=== PATIENT | female | born 2000 | race Caucasian/White ===

== ENCOUNTER 2023-11-15 16:49 | Emergency (ER) | payer OTHER, SELFPAY ==
[2023-11-15 17:02] VITALS: BP 141/72; PULSE 89; RESP 18; TEMP 38; O2SAT 98; BMI 47.8
--- NOTE | 2023-11-15 17:23 | PC.NURSE ---
Patient answered yes to multiple social determinants of health questions but asked not to speak to a licensed clinical social worker about them.
--- NOTE | 2023-11-15 18:18 | ED_ITS ---
HPI - Skin/Abscess/Foreign Bdy General Chief complaint: Skin/Abscess/Foreign Body Stated complaint: auto imm dis flare up Time Seen by Provider: 11/15/23 17:57 Source: patient Mode of arrival: Ambulatory Limitations: no limitations History of Present Illness HPI narrative: 21-year-old female presents for throat swelling, fever, reported rash over forearms. 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 For the last several days she was had a fever with sore throat and swollen tonsils. She states that a red rash seems to be spreading over her forearms and so she was concerned that her Henoch-Schoenlein had come back. Related Data Previous Rx's Medication Instructions Recorded cephalexin 500 mg capsule 500 mg PO Q12H #20 caps 11/15/23 ondansetron 4 mg disintegrating 4 mg PO Q8H PRN nausea and 11/15/23 tablet vomiting #30 tabs Allergies Allergy/AdvReac Type Severity Reaction Status Date / Time latex Allergy Rash Verified 11/15/23 17:17 Penicillins Allergy Hives Verified 11/15/23 17:17 prochlorperazine AdvReac Anxiety Verified 11/15/23 17:17 [From Compazine] Patient History Social History Smoking Status: Current every day smoker Smoking Status: Current every day smoker tobacco type: vaping alcohol intake frequency: holidays/special occasions only Substance Use Type: marijuana Exam Initial Vital Signs Initial Vital Signs: Vital Signs Temperature 100.4 F H 11/15/23 17:02 Pulse Rate 89 11/15/23 17:02 Respiratory Rate 18 11/15/23 17:02 Blood Pressure 141/72 H 11/15/23 17:02 Pulse Oximetry 98 11/15/23 17:02 Oxygen Delivery Method Room Air 11/15/23 17:02 Const: Awake, alert, no acute distress, nontoxic appearing HEENT: Bilateral tonsillar erythema with white exudates, uvula midline Cardiac: regular rate, regular rhythm RESP: unlabored, clear bilaterally, no wheezing Skin: Warm, Dry, intact, no rashes Neuro: AO x3, CN II-XII grossly intact, moves all extremities Course Orders Ordered: ED Orders 11/15/23 18:20 Strep Grp A by PCR Rapid Stat 11/15/23 18:26 Respiratory Panel (Film Array) Stat 11/15/23 18:45 UA Complete [Urinalysis and Microscopic] Stat Urine Culture Stat 11/15/23 18:50 CBC Auto Diff [Complete Blood Count AUTO DIFF] Stat CMP [Comprehensive Metabolic Panel] Stat Lipase Stat Monotest Stat Discontinued Medications Acetaminophen (Acetaminophen 325 Mg Tablet) 975 mg PO NOW ONE Stop: 11/15/23 18:15 Last Admin: 11/15/23 18:40 Dose: 975 mg Documented By: GC Cephalexin HCl (Cephalexin 250 Mg Capsule) 500 mg PO NOW ONE Stop: 11/15/23 20:11 Last Admin: 11/15/23 20:28 Dose: 500 mg Documented By: RLS Dexamethasone (Dexamethasone 10 Mg/Ml Vial) 10 mg IV NOW ONE Stop: 11/15/23 19:44 Last Admin: 11/15/23 19:54 Dose: 10 mg Documented By: MPO Ketorolac Tromethamine (Ketorolac 30 Mg/Ml Vial) 15 mg IV NOW ONE Stop: 11/15/23 19:44 Last Admin: 11/15/23 19:54 Dose: 15 mg Documented By: MPO Vital Signs Vital signs: Vital Signs - 8 hr 11/15/23 18:58 11/15/23 18:59 11/15/23 18:59 Pulse Rate 82 82 Blood Pressure 110/64 Pulse Oximetry 98 98 11/15/23 19:00 11/15/23 19:00 11/15/23 19:30 Pulse Rate 78 Blood Pressure 114/65 119/56 L Pulse Oximetry 99 11/15/23 19:30 11/15/23 20:00 11/15/23 20:00 Pulse Rate 82 74 Blood Pressure 118/65 Pulse Oximetry 98 98 MDM - Skin/Abscess/Foreign Bdy Differential Diagnosis Differential diagnosis: Likely abscess of skin or subcutaneous tissue, viral exanthem and dermatophytosis Lab Data 11/15/23 18:50 11/15/23 18:50 Labs: Lab Results 11/15/23 11/15/23 11/15/23 Range/Units 18:20 18:26 18:45 WBC (4.5-11.0) X10^3/uL RBC (4.0-5.2) X10^6/uL Hgb (12.0-16.0) g/dL Hct (36-46) % MCV (80-100) fL MCH (26-34) PG MCHC (30-36) % RDW (11.6-14.8) % Plt Count (150-400) X10^3/uL Neut % (Auto) (50-75) % Lymph % (Auto) (25-40) % Cecil % (Auto) (3-14) % Eos % (Auto) (2-4) % Baso % (Auto) (0-2) % Neut # (Auto) (6097-1133) /uL Lymph # (Auto) (9920-9794) /uL Cecil # (Auto) (0-900) /uL Eos # (Auto) (0-450) /uL Baso # (Auto) (0-100) /uL Sodium (137-145) mmol/L Potassium (3.4-5.1) mmol/L Chloride (98-107) mmol/L Carbon Dioxide (22-32) mmol/L BUN (7-17) mg/dL Creatinine (0.52-1.04) mg/dL Estimated GFR (>60) mL/min BUN/Creatinine Ratio (6-22) Glucose (70-100) mg/dL Calcium (8.4-10.2) mg/dL Total Bilirubin (0.2-1.3) mg/dL AST (14-36) IU/L ALT (<35) IU/L Alkaline Phosphatase (38-126) U/L Total Protein (6.3-8.2) g/dL Albumin (3.5-5.0) g/dL Globulin (1.7-4.1) g/dL Albumin/Globulin Ratio (1.0-2.8) Lipase (23-300) U/L Urine Color Yellow Urine Appearance Clear Urine pH 6.5 (4.5-8.0) Ur Specific [place] 1.010 (1.000-1.035) Urine Protein Negative (Negative) Urine Glucose (UA) Negative (Negative) g/dL Urine Ketones Negative (NEGATIVE) Urine Occult Blood Trace-intact (Negative) Urine Nitrate Negative (Negative) Urine Bilirubin Negative (NEGATIVE) Urine Urobilinogen 0.2 (0.2) E.U./dL Ur Leukocyte Esterase Trace H (NEGATIVE) Urine RBC None seen (0-5/HPF) Urine WBC 0-1/hpf (0-5/HPF) Ur Squamous Epith Cells 5-10 /hpf H (0-5/HPF) Urine Bacteria Moderate (10-30) H (None) Ur Culture Indicated? Specimen cultured Vol Urine Centrifuged 10ml (spun) Chlamy pneumoniae PCR Not detected (Not Detect) Adenovirus (PCR) Not detected (Not Detect) B.parapertussis DNA PCR Not detected (Not Detecte) Coronavirus OC43 (PCR) Not detected (Not Detect) Coronavirus HKU1 (PCR) Not detected (Not Detect) Coronavirus 229E (PCR) Not detected (Not Detect) SARS-CoV-2 (PCR) Not detected (Not Detecte) Coronavirus NL63 (PCR) Not detected (Not Detect) Monoscreen (Negative) Human Metapneumovir PCR Not detected (Not Detect) Influenza Type A (PCR) Not detected (Not Detect) Influenza Type B (PCR) Not detected (Not Detect) M. pneumoniae (PCR) Not detected (Not Detect) Parainfluenza 1 (PCR) Not detected (Not Detect) Parainfluenza 2 (PCR) Not detected (Not Detect) Parainfluenza 3 (PCR) Not detected (Not Detect) Parainfluenza 4 (PCR) Not detected (Not Detect) RSV (PCR) Not detected (Not Detect) Entero/Rhino (PCR) Not detected (Not Detect) Group A Strep (PCR) Negative (Negative) 11/15/23 Range/Units 18:50 WBC 9.3 (4.5-11.0) X10^3/uL RBC 4.51 (4.0-5.2) X10^6/uL Hgb 12.0 (12.0-16.0) g/dL Hct 36.5 (36-46) % MCV 80.9 (80-100) fL MCH 26.6 (26-34) PG MCHC 32.9 (30-36) % RDW 14.7 (11.6-14.8) % Plt Count 311 (150-400) X10^3/uL Neut % (Auto) 72.9 (50-75) % Lymph % (Auto) 14.1 L (25-40) % Cecil % (Auto) 10.7 (3-14) % Eos % (Auto) 1.5 L (2-4) % Baso % (Auto) 0.8 (0-2) % Neut # (Auto) 6800 (9384-9426) /uL Lymph # (Auto) 1300 (8389-8294) /uL Cecil # (Auto) 1000 H (0-900) /uL Eos # (Auto) 100 (0-450) /uL Baso # (Auto) 100 (0-100) /uL Sodium 136 L (137-145) mmol/L Potassium 4.4 (3.4-5.1) mmol/L Chloride 104 (98-107) mmol/L Carbon Dioxide 26 (22-32) mmol/L BUN 10 (7-17) mg/dL Creatinine 0.72 (0.52-1.04) mg/dL Estimated GFR > 60 (>60) mL/min BUN/Creatinine Ratio 13.9 (6-22) Glucose 92 (70-100) mg/dL Calcium 8.8 (8.4-10.2) mg/dL Total Bilirubin 1.0 (0.2-1.3) mg/dL AST 23 (14-36) IU/L ALT 17 (<35) IU/L Alkaline Phosphatase 89 (38-126) U/L Total Protein 8.0 (6.3-8.2) g/dL Albumin 4.1 (3.5-5.0) g/dL Globulin 3.9 (1.7-4.1) g/dL Albumin/Globulin Ratio 1.1 (1.0-2.8) Lipase 37 (23-300) U/L Urine Color Urine Appearance Urine pH (4.5-8.0) Ur Specific [place] (1.000-1.035) Urine Protein (Negative) Urine Glucose (UA) (Negative) g/dL Urine Ketones (NEGATIVE) Urine Occult Blood (Negative) Urine Nitrate (Negative) Urine Bilirubin (NEGATIVE) Urine Urobilinogen (0.2) E.U./dL Ur Leukocyte Esterase (NEGATIVE) Urine RBC (0-5/HPF) Urine WBC (0-5/HPF) Ur Squamous Epith Cells (0-5/HPF) Urine Bacteria (None) Ur Culture Indicated? Vol Urine Centrifuged Chlamy pneumoniae PCR (Not Detect) Adenovirus (PCR) (Not Detect) B.parapertussis DNA PCR (Not Detecte) Coronavirus OC43 (PCR) (Not Detect) Coronavirus HKU1 (PCR) (Not Detect) Coronavirus 229E (PCR) (Not Detect) SARS-CoV-2 (PCR) (Not Detecte) Coronavirus NL63 (PCR) (Not Detect) Monoscreen Negative (Negative) Human Metapneumovir PCR (Not Detect) Influenza Type A (PCR) (Not Detect) Influenza Type B (PCR) (Not Detect) M. pneumoniae (PCR) (Not Detect) Parainfluenza 1 (PCR) (Not Detect) Parainfluenza 2 (PCR) (Not Detect) Parainfluenza 3 (PCR) (Not Detect) Parainfluenza 4 (PCR) (Not Detect) RSV (PCR) (Not Detect) Entero/Rhino (PCR) (Not Detect) Group A Strep (PCR) (Negative) MDM Narrative Medical decision making narrative: Well-appearing patient with the above symptoms. Complaining of a rash on her forearms, however I do not appreciate an obvious rash on my exam. Tonsils do appear to be swollen and have exudates present. Since patient was history of HSP and IgA nephropathy laboratory work was ordered. Laboratory work shows no acute findings. Platelets normal, kidney function normal. Patient given Toradol and Decadron for pain, fever, sore throat with improvement in symptoms. Strep, respiratory swab, Monospot negative, however since patient does have fever, no cough, exudates present, and mild tender anterior adenopathy we will treat as strep throat empirically with antibiotics. Patient reports allergy to penicillins and so Keflex sent to pharmacy of choice. Note for work provided Discharge Plan Departure Patient Disposition: Home Clinical Impression: Pharyngitis Qualifiers: Pharyngitis/tonsillitis etiology: unspecified etiology Qualified Code(s): J02.9 - Acute pharyngitis, unspecified Instructions: DI for Pharyngitis/Tonsillopharyngitis -- Adult Activity Restrictions/Additional Instructions: Take Tylenol and ibuprofen as needed for pain. Prescriptions: New ondansetron 4 mg tablet,disintegrating 4 mg PO Q8H PRN (Reason: nausea and vomiting) Qty: 30 0RF cephalexin 500 mg capsule 500 mg PO Q12H Qty: 20 0RF Stand Alone Forms: Patient Portal/API, Work Release Note
[2023-11-15] MEDS: ACETAMINOPHEN 325 MG TABLET 975 MG PO (18:40)
[2023-11-15 18:41] LABS: Strep Grp A by PCR Rapid Negative (Negative)
[2023-11-15 18:50] LABS: Appearance Urine UA CLEAR; Bilirubin Urine UA NEGATIVE (NEGATIVE); Color Urine UA YELLOW; Glucose Urine UA NEGATIVE (Negative); Ketones Urine UA NEGATIVE (NEGATIVE); Leukocyte Esterase Urine UA TRACE (NEGATIVE); Nitrite Urine UA NEGATIVE (Negative); Occult Blood Urine UA TRACE-INTACT (Negative); Protein Urine UA NEGATIVE (Negative); Urobilinogen Urine UA 0.2 E.U./dL (0.2)
[2023-11-15 18:52] LABS: pH Urine UA 6.5 (4.5-8.0)
[2023-11-15 18:53] LABS: Urine Volume 10mL (spun)
[2023-11-15 18:58] VITALS: PULSE 82; O2SAT 98
[2023-11-15 18:58] LABS: Bacteria Urine Moderate (10-30); RBC Urine None Seen (0-5/HPF); WBC Urine 0-1/HPF (0-5/HPF)
[2023-11-15 18:59] VITALS: BP 110/64; PULSE 82; O2SAT 98
[2023-11-15 18:59] LABS: Culture Indicated Urine Specimen Cultured; Squamous Epithelial Cell Urine 5-10 /HPF (0-5/HPF)
[2023-11-15 19:00] VITALS: BP 114/65; PULSE 78; O2SAT 99
[2023-11-15 19:04] LABS: Add Manual Diff / Slide Review NO; Basophils Absolute Auto 100 /uL (0-100); Basophils Percent Auto 0.8 % (0-2); Eosinophils Absolute Auto 100 /uL (0-450); Eosinophils Percent Auto 1.5 % (2-4); Hematocrit 36.5 % (36-46); Lymphocytes Absolute Auto 1300 /uL (1100-4500); Lymphocytes Percent Auto 14.1 % (25-40); Mean Corpuscular HGB Conc 32.9 % (30-36); Mean Corpuscular Hemoglobin 26.6 PG (26-34); Mean Corpuscular Volume 80.9 fL (80-100); Monocytes Absolute Auto 1000 /uL (0-900); Monocytes Percent Auto 10.7 % (3-14); Neutrophils Absolute Auto 6800 /uL (1500-7000); Neutrophils Percent Auto 72.9 % (50-75); Platelet Count 311 X10^3/uL (150-400); Red Blood Cell Count 4.51 X10^6/uL (4.0-5.2); Red Cell Distribution Width 14.7 % (11.6-14.8); White Blood Cell Count 9.3 X10^3/uL (4.5-11.0)
[2023-11-15 19:15] LABS: Alanine Aminotransferase 17 IU/L (<35); Albumin 4.1 g/dL (3.5-5.0); Albumin Globulin Ratio 1.1 (1.0-2.8); Alkaline Phosphatase 89 U/L (38-126); Aspartate Aminotransferase 23 IU/L (14-36); BUN Creatinine Ratio 13.9 (6-22); Blood Urea Nitrogen 10 mg/dL (7-17); Calcium 8.8 mg/dL (8.4-10.2); Carbon Dioxide 26 mmol/L (22-32); Chloride 104 mmol/L (98-107); Estimated Glomerular Filt Rate > 60 mL/min (>60); Globulin 3.9 g/dL (1.7-4.1); Glucose 92 mg/dL (70-100); HEMOLYSIS < 15 (0-50); Lipase 37 U/L (23-300); Potassium 4.4 mmol/L (3.4-5.1); Sodium 136 mmol/L (137-145)
[2023-11-15 19:23] LABS: Adenovirus Not Detected (Not Detect); B. parapertussis Not Detected (Not Detecte); Bordetella pertussis Not Detected (Not Detect); Chlamydophila pneumoniae Not Detected (Not Detect); Coronavirus 229E Not Detected (Not Detect); Coronavirus HKU1 Not Detected (Not Detect); Coronavirus NL 63 Not Detected (Not Detect); Coronavirus OC43 Not Detected (Not Detect); Human Metapneumovirus Not Detected (Not Detect); Human Rhinovirus/Enterovirus Not Detected (Not Detect); Influenza A Not Detected (Not Detect); Influenza B Not Detected (Not Detect); Mycoplasma pneumoniae Not Detected (Not Detect); Parainfluenza Virus 1 Not Detected (Not Detect); Parainfluenza Virus 2 Not Detected (Not Detect); Parainfluenza Virus 3 Not Detected (Not Detect); Parainfluenza Virus 4 Not Detected (Not Detect); Respiratory Syncytial Virus Not Detected (Not Detect); SARS- CoV-2 Not Detected (Not Detecte)
[2023-11-15 19:30] VITALS: BP 119/56; PULSE 82; O2SAT 98
[2023-11-15] MEDS: KETOROLAC 30 MG/ML VIAL 15 MG IV (19:54)
[2023-11-15] MEDS: DEXAMETHASONE 10 MG/ML VIAL IV (19:54)
[2023-11-15 19:59] LABS: Monotest Negative (Negative)
[2023-11-15 20:00] VITALS: BP 118/65; PULSE 74; O2SAT 98
[2023-11-15] MEDS: cephALEXin 250 MG CAPSULE 500 MG PO (20:28)
== END 2023-11-15 20:34 | disposition home or self-care (01) ==
PROVIDERS: Emergency Provider Emergency Medicine
DX: J02.9 Acute pharyngitis, unspecified (principal); Z11.52 Encounter for screening for COVID-19
CPT/HCPCS: 36415; 80053; 81001; 83690; 85025; 86318; 87086; 87633; 87651; 96374; 96375; 99284; J1100; J1885

== ENCOUNTER → 2024-09-13 13:08 | Outpatient (CLI) | payer OTHER, SELFPAY ==
--- NOTE | 2024-09-13 13:12 | DI.US.S_ITS ---
PROCEDURE: US PELVIC COMPLETE INDICATIONS: LEFT OVARIAN PAIN. HISTORY OF PCOS. TECHNIQUE: Real-time scanning was performed of the pelvic organs, with image documentation. Additional endovaginal scanning was necessary due to incomplete visualization of the adnexal and endometrial structures by transabdominal scanning. COMPARISON: None. FINDINGS: Uterus: Uterus is anteverted and normal in size at 8.0 x 4.6 x 3.2 cm. The myometrium is homogeneous. The endometrium measures 4.3 mm combined thickness. Intrauterine device appears in appropriate position. Ovaries: The right ovary measures 3.4 x 3.2 x 2.7 cm, with a calculated ovarian volume of 16.7 cc. Right ovarian dominant follicle versus simple cyst measuring 2.8 cm. The left ovary measures 1.9 x 1.9 x 1.5 cm, with a calculated ovarian volume of 2.8 cc. The ovaries have a normal sonographic appearance. Less than 12 follicles can be seen in each ovary. No adnexal masses are seen. Other: No pathologic free abdominal or pelvic fluid. IMPRESSION: Normal appearance of the uterus and ovaries. Intrauterine device appears in appropriate position. Less than 12 follicles are seen per ovary. We strive to produce accurate, complete, and clear reports of imaging services. To assist us in improving patient care, this report was composed using standard report templates and voice recognition software. Therefore, it may contain abnormal punctuation, insertions and/or omissions. Occasional wrong-word or sound-alike substitutions may occur. Though we review the report and make efforts to correct it, we do recommend that the report be read carefully in proper context to recognize any text inaccuracies. Dictated by: Gennaro Downey M.D. on 09/13/2024 at 16:59 Approved by: Gennaro Downey M.D. on 09/13/2024 at 17:01
== END ==
LOC: US 13:12
PROVIDERS: PCP Registered Nurse; Referring Provider Obstetrics & Gynecology; Visit Provider Obstetrics & Gynecology
DX: R10.2 Pelvic and perineal pain (principal); Z87.42 Personal history of other diseases of the female genital tract; Z97.5 Presence of (intrauterine) contraceptive device
CPT/HCPCS: 76830; 76856

== ENCOUNTER 2024-09-26 11:50 | Day surgery (SDC) | payer OTHER, SELFPAY ==
[2024-09-22 12:30] VITALS: BMI 48.5
[2024-09-26] VITALS (8 sets, daily range): BP systolic 106–127; BP diastolic 47–84; PULSE 73–98; RESP 15–20; TEMP 36.2–36.7; O2SAT 96–100; BMI 48.6
--- NOTE | 2024-09-26 12:44 | PM.PREOP ---
Pre-operative Note Interval Note History & Physical reviewed/Exam performed by Physician: Yes Changes to H&P: No ASA Class (for procedural sedation): II
[2024-09-26] MEDS: SCOPOLAMINE 1 PATCH TOP (12:57)
[2024-09-26] MEDS: LACTATED RINGERS 1,000 ML 42 ML IV ×2 (12:57→14:23)
[2024-09-26] MEDS: ACETAMINOPHEN 325 MG TABLET 975 MG PO (12:58)
--- NOTE | 2024-09-26 14:00 | SUR.OPER ---
Lithotomy on padded OR bed. Welton Pad Positioner under torso. Head on pillow, arms padded and tucked at sides. Purple safety strap to upper body. Legs secured in padded yellow fins stirrups.
[2024-09-26] MEDS: BUPIVACAINE 0.25% W/ EPI 30 ML VIAL INJ (14:18)
--- NOTE | 2024-09-26 14:57 | P.OP_ITS ---
Operative Date/Time/Diagnoses Date of procedure: 09/26/24 Time of procedure: 14:57 Pre-op diagnosis: symptomatic ROV cyst, desired removal of IUD/placement of nexplanon Post-op diagnosis: same Procedure & Clinicians Procedure: diagnostic laparoscopy, R ovarian cystectomy, removal of IUD, placement of LUE nexplanon Same procedure(s) as scheduled: Yes Indications: symptomatic ROV cyst, desired change in contraception Surgeon: Michela Tong Click Yes if Unassisted: Yes Anesthesia Type: General Operative Notes Findings: Enlarged R ovary consistent with prior imaging, cyst contents drained of simple fluid IUD removed, visualized and noted to be intact Scant L pelvic sidewall adhesion, no significant stigamata of endometriosis identified, normal appearing appendix and liver edge Specimen(s): none sent Applied: implant(s) (nexplanon SN [id number] Exp 2026-09 Lot [id number]) Estimated Blood Loss (mL): 5 Blood products transfused: none Procedure in detail: The patient was taken to the operating room, placed on the operating table in the supine position and intubated with ETT.? The patient was then placed in the lithotomy position with her legs in George stirrups.? The patient was then examined under anesthesia with the above findings, then prepped and draped in a sterile fashion.? A sparks catheter was placed.? Time out was performed. A 5mm incision was made infraumbilically and abdominal entry was achieved under direct visualization using the 5mm VisaPort trocar.? Abdomen was insufflated to 15mmHg.? Two lateral 5-mm ports were placed in a similar manner under direct visualization.? Abdominal survey performed with findings as noted above. Using the monopolar endoshears the large R cyst was sharply incised. The suction solar energy advisor and was immediately placed into the cyst wall defect and copious serous fluid was evacuated. The site of incision was noted to hemostatic without indication for laparoscopic repair. L ovary visualized and normal in appearance. Scant L pelvic side wall adhesion noted and taken down sharply, wound bed noted to be hemostatic. The abdomen was suction irrigated of all remaining fluid. Laparoscopic trocars were removed under direct visualization and abdominal insufflation was released. The skin of all incisions was closed using 4-0 monocryl followed by application of dermabond. Attention was then turned to vaginal portion of the case. A sterile speculum was placed in the vagina and cervix was visualized. IUD strings noted at external os. IUD strings grasped with ring forceps and with gentle traction device easily removed, visually inspected and noted to be intact. The patient had previously indicated R hand dominance. Her left arm was extended to and then flexed to 90 degrees. Medial epicondyle palpated, area of planned insertion marked 8cm proximal thereof within the inferior aspect of the brachial groove.? Area swabbed with alcohol prep and then superficially infiltrated with 5cc 1% lidocaine for local analgesia.? Nexplanon device obtained from office supply was placed per photo stylist instructions without difficulty.? Insertional incision reapproximated with steristrips and hemostasis noted.? Compression bandage applied. The patient was awakened from anesthesia, extubated and taken to PACU without complication. All counts correct x2 Complications: none Post-operative Condition: stable Disposition: PACU Plan for aftercare: anticipate dc to home pending routine postop recovery, routine outpatient f/u in office as scheduled
[2024-09-26] MEDS: HYDROMORPHONE 1 MG INJ IV (15:03)
[2024-09-26] MEDS: OXYCODONE IR 5 MG TABLET PO ×2 (15:12→15:58)
== END 2024-09-26 16:25 | disposition home or self-care (01) ==
PROVIDERS: PCP Registered Nurse; Referring Provider Obstetrics & Gynecology; Visit Provider Obstetrics & Gynecology
PROC: (CPT 49322; principal; 2024-09-26 13:45)
DX: N83.201 Unspecified ovarian cyst, right side (principal); R10.2 Pelvic and perineal pain; Z30.432 Encounter for removal of intrauterine contraceptive device; Z30.017 Encounter for initial prescription of implantable subdermal contraceptive; N73.6 Female pelvic peritoneal adhesions (postinfective)
CPT/HCPCS: 49322; 58301; 11981; C1713; J1100; J1171; J1885; J2250; J2405; J2704; J3010; J3490

== ENCOUNTER 2024-09-28 01:19 | Emergency (ER) | payer OTHER, SELFPAY ==
[2024-09-28 01:48] VITALS: BP 123/68; PULSE 70; RESP 20; TEMP 36.6; O2SAT 97; BMI 47.8
--- NOTE | 2024-09-28 02:43 | ED.GENADULT ---
HPI - General Adult General Chief complaint: Shortness of Breath/Dyspnea Stated complaint: Rt side pain, prior surgery x2days Time Seen by Provider: 09/28/24 02:43 Source: patient Mode of arrival: Ambulatory History of Present Illness HPI narrative: 24-year-old woman who underwent diagnostic laparoscopy with right ovarian cystectomy, removal of an IUD in placement of a left upper extremity Nexplanon on September 26. She has been using her prescribed pain medications but noting more pain and she had anticipated. She laid down this evening and felt a pulling and tearing in her right side that then radiated up into her arm her shoulder and her neck. The pain is significant enough that is causing her to splint while breathing. Still complaining of neck pain. Has not yet had a bowel movement since surgery, no dysuria, no palpitations no cough Related Data Home Medications ?Medication ?Instructions ?Recorded ?Confirmed duloxetine 30 mg capsule,delayed 30 mg PO DAILY 09/22/24 09/26/24 release hydroxyzine HCl 25 mg tablet 25 mg PO Q6H 09/22/24 09/26/24 metformin 500 mg tablet,extended 500 mg PO DAILY 09/22/24 09/26/24 release 24 hr prazosin 2 mg capsule 2 mg PO BEDTIME 09/22/24 09/26/24 quetiapine 300 mg tablet 350 mg PO DAILY 09/22/24 09/26/24 Previous Rx's ?Medication ?Instructions ?Recorded ondansetron 4 mg disintegrating 4 mg PO Q8H PRN nausea and 11/15/23 tablet vomiting #30 tabs ibuprofen 800 mg tablet 800 mg PO Q8H #10 tabs 09/26/24 oxycodone 5 mg capsule 5 mg PO Q8H PRN pain #5 caps 09/26/24 oxycodone 5 mg tablet 5 mg PO Q6H PRN pain #10 tabs 09/28/24 Allergies Allergy/AdvReac Type Severity Reaction Status Date / Time latex Allergy Rash Verified 09/28/24 01:59 Penicillins Allergy Hives Verified 09/28/24 01:59 prochlorperazine (From AdvReac Anxiety Verified 09/28/24 01:59 Compazine) Review of Systems Review of Systems Narrative: Pertinent positive and negative findings as per HPI Patient History Medical History (Updated 09/28/24 @ 03:49 by Criselda Stafford MD) Deep dyspareunia in female Ovarian cyst Neuropathy with IgA monoclonal gammopathy HSP (Henoch Schonlein purpura) Prediabetes PCOS (polycystic ovarian syndrome) Social History alcohol intake: current tobacco type: vaping alcohol intake frequency: holidays/special occasions only Exam Initial Vital Signs Initial Vital Signs: Vital Signs Temperature 97.9 F 09/28/24 01:48 Pulse Rate 70 09/28/24 01:48 Respiratory Rate 20 09/28/24 01:48 Blood Pressure 123/68 09/28/24 01:48 Pulse Oximetry 97 09/28/24 01:48 Oxygen Delivery Method Room Air 09/28/24 01:48 General: Healthy appearing, appears fatigued, hurting but Able to give a complete and coherent history. Well-nourished well-developed HEENT: Moist mucous membranes, normal sclera with reactive pupils, Neck: No subcutaneous air Respiratory: Lungs are clear to auscultation, no wheezing no rales no rhonchi. Full and symmetrical air movement Cardiac: Regular rate and rhythm no murmurs no bruits Abdomen: Soft, minor bruising around trochanteric incision sites. No sign of infection. No tenderness in the right upper quadrant, mild discomfort in the right lower quadrant consistent with 48 hours postoperative cyst removal. She does not have any rebound or guarding Skin: Warm and dry, Neurologic: Grossly neurologically intact with no obvious asymmetries or abnormalities Extremities: No trauma, well perfused Psych: Cooperative, appropriate insight and affect Course Orders Ordered: ED Orders 09/28/24 02:44 XR chest 1V Stat 09/28/24 03:02 Urine Microscopic Stat 09/28/24 03:15 CBC Auto Diff [Complete Blood Count AUTO DIFF] Stat CMP [Comprehensive Metabolic Panel] Stat Discontinued Medications Hydromorphone HCl (Hydromorphone 0.5 Mg Inj) 0.5 mg IV NOW ONE Stop: 09/28/24 03:48 Last Admin: 09/28/24 04:12 Dose: 0.5 mg Documented By: DARRYL Ketorolac Tromethamine (Ketorolac 30 Mg/Ml Vial) 15 mg IV NOW ONE Stop: 09/28/24 03:37 Last Admin: 09/28/24 04:11 Dose: 15 mg Documented By: DARRYL Vital Signs Vital signs: Vital Signs - 8 hr 09/28/24 01:48 09/28/24 04:19 09/28/24 04:19 Temperature 97.9 F Pulse Rate 70 63 Respiratory Rate 20 17 Blood Pressure 123/68 130/77 Pulse Oximetry 97 99 Oxygen Delivery Method Room Air Room Air Medical Decision Making Lab Data 09/28/24 03:15 09/28/24 03:15 Labs: Lab Results 09/28/24 09/28/24 Range/Units 03:02 03:15 WBC 8.8 (4.5-11.0) X10^3/uL RBC 4.83 (4.0-5.2) X10^6/uL Hgb 12.8 (12.0-16.0) g/dL Hct 37.7 (36-46) % MCV 77.9 L (80-100) fL MCH 26.5 (26-34) PG MCHC 34.0 (30-36) % RDW 15.0 H (11.6-14.8) % Plt Count 287 (150-400) X10^3/uL Neut % (Auto) 48.0 L (50-75) % Lymph % (Auto) 42.4 H (25-40) % [place] % (Auto) 7.5 (3-14) % Eos % (Auto) 1.5 L (2-4) % Baso % (Auto) 0.6 (0-2) % Neut # (Auto) 4200 (3683-1576) /uL Lymph # (Auto) 3700 (6610-4086) /uL [place] # (Auto) 700 (0-900) /uL Eos # (Auto) 100 (0-450) /uL Baso # (Auto) 100 (0-100) /uL Sodium 140 (137-145) mmol/L Potassium 4.0 (3.4-5.1) mmol/L Chloride 107 (98-107) mmol/L Carbon Dioxide 22 (22-32) mmol/L BUN 15 (7-17) mg/dL Creatinine 0.79 (0.52-1.04) mg/dL Estimated GFR > 60 (>60) mL/min BUN/Creatinine Ratio 19.0 (6-22) Glucose 114 H (70-99) mg/dL Calcium 8.5 (8.4-10.2) mg/dL Total Bilirubin 0.9 (0.2-1.3) mg/dL AST 22 (14-36) IU/L ALT 17 (<35) IU/L Alkaline Phosphatase 89 (38-126) U/L Total Protein 7.8 (6.3-8.2) g/dL Albumin 4.5 (3.5-5.0) g/dL Globulin 3.3 (1.7-4.1) g/dL Albumin/Globulin Ratio 1.4 (1.0-2.8) Urine RBC 5-10/hpf H (0-5/HPF) Urine WBC None seen (0-5/HPF) Ur Squamous Epith Cells 1-5 /hpf (0-5/HPF) Urine Bacteria None seen (None) Ur Culture Indicated? Cult not indicated Vol Urine Centrifuged 10ml (spun) Urine Dip Bedside Urine Glucose Negative Bedside Urine Bilirubin - Negative Bedside Urine Ketone - Negative Urine Specific [place] 1.030 Bedside Urine Occult Blood +++ Bedside Urine pH 6.0 Bedside Urine Protein + 30 Bedside Urine Urobilinogen - Negative Bedside Urine Nitrite - Negative Bedside Urine Leukocytes - Negative Esterase Point of care testing: Urine Dip Bedside Urine Glucose Negative Bedside Urine Bilirubin - Negative Bedside Urine Ketone - Negative Urine Specific [place] 1.030 Bedside Urine Occult Blood +++ Bedside Urine pH 6.0 Bedside Urine Protein + 30 Bedside Urine Urobilinogen - Negative Bedside Urine Nitrite - Negative Bedside Urine Leukocytes - Negative Esterase MDM Narrative Medical decision making narrative: CC: Right-sided pain radiating up through diaphragm lungs to the shoulder and up into the neck L through the arm Complicating co-morbidities: 48 hours postop from removal of right ovarian cyst exploratory laparotomy Data collected from: patient Medical records reviewed: Off notes from surgery on the reviewed Differential considered: Postoperative pain, intra-abdominal bleeding, diaphragmatic irritation post insufflation causing shoulder pain, pulmonary embolism Exam documented above, pertinent findings include: Exam is essentially benign. Her abdomen is level of tenderness I would expect 48 hours postop with no evidence of rebound or guarding Lab Test results independently reviewed as above. Pertinent findings: CBC is unremarkable Chemistries are reassuring Imaging studies independently reviewed: Chest x-ray shows no pneumothorax, no pulmonary infiltrate, no obvious subdiaphragmatic air Treatments: IV Toradol, IV Dilaudid Discussion: 24-year-old woman 48 hours postop with right ovarian cyst removal. I suspect that she is experiencing postoperative pain and whether something pulled in early or she had some fluid leaking up around her diaphragm when she was lying flat is unclear. No evidence of obvious intra-abdominal hemorrhage, infection, surgical abdomen. Despite pain to the shoulder no abnormalities with shoulder chest or neck exam all consistent with referred diaphragmatic pain. Patient does note that the 5 mg of oxycodone that she was givento use for pain control is not proving very effective, she has been appropriately combining it with ibuprofen. I have given her prescription for 10 additional tablets we discussed considering taking 2 at a time with the ibuprofen however, pain likely is going to continue improving from this point out. Reassurance is given she is feeling much better with pain adequately controlled and she is safe for discharge Discharge Plan Departure Patient Disposition: Home Clinical Impression: Post-operative pain Instructions: DI for Postoperative Pain Activity Restrictions/Additional Instructions: Thank you for coming in today I suspect you are feeling postoperative pain rather than any significant complication of your recent surgery I am not seeing any signs of infection, internal bleeding, collapsed lung or other concerning findings. I suspect that you are having mild inflammation after your surgery that is irritating your diaphragm on the right side and this is what is causing your upper chest shoulder and arm pain. I have sent an additional 10 tablets of oxycodone to [facility] in [place]. Using 400 mg of ibuprofen (2 [id number] pills) and 1 Tylenol every 6 hours can be very helpful in controlling pain. For severe pain you can add 1 oxycodone to this combination. I would add a stool softener to this combination as you have already been more than 48 hours without a bowel movement and narcotics make you constipated Please keep your scheduled follow up postop appointments. If you find that you are getting worse or develop any new symptoms, please feel free to return to the emergency department for further evaluation. Prescriptions: New oxycodone 5 mg tablet 5 mg PO Q6H PRN (Reason: pain) Qty: 10 0RF No Action hydroxyzine HCl 25 mg tablet 25 mg PO Q6H duloxetine 30 mg capsule,delayed release(DR/EC) 30 mg PO DAILY metformin 500 mg tablet extended release 24 hr 500 mg PO DAILY Patient Comments: Currently taking once daily prazosin 2 mg capsule 2 mg PO BEDTIME quetiapine 300 mg tablet 350 mg PO DAILY ibuprofen 800 mg tablet 800 mg PO Q8H Qty: 10 0RF Rx Instructions: take with food oxycodone 5 mg capsule 5 mg PO Q8H PRN (Reason: pain) Qty: 5 0RF ondansetron 4 mg tablet,disintegrating 4 mg PO Q8H PRN (Reason: nausea and vomiting) Qty: 30 0RF Referrals: Filomena Fleming ARNP [Primary Care Provider, Family Practice] Stand Alone Forms: Patient Portal/API
--- NOTE | 2024-09-28 02:44 | DI.RAD.S_ITS ---
PROCEDURE: XR CHEST 1V INDICATIONS: cough, fever, post op laproscopy TECHNIQUE: One view of the chest was acquired. COMPARISON: None. FINDINGS: Surgical changes and devices: None. Lungs and pleura: Lungs are clear. No pleural effusions or pneumothorax. Mediastinum: Mediastinal contours appear normal. Heart size is normal. Bones and chest wall: No suspicious bony lesions. Overlying soft tissues appear unremarkable. IMPRESSION: No acute cardiopulmonary abnormality is seen. There is no significant discrepancy when compared to the overnight preliminary report. Approved by: Jozef Grajeda M.D. on 09/28/2024 at 8:13
[2024-09-28 03:25] LABS: Add Manual Diff / Slide Review NO; Basophils Absolute Auto 100 /uL (0-100); Basophils Percent Auto 0.6 % (0-2); Eosinophils Absolute Auto 100 /uL (0-450); Eosinophils Percent Auto 1.5 % (2-4); Hematocrit 37.7 % (36-46); Hemoglobin 12.8 g/dL (12.0-16.0); Lymphocytes Absolute Auto 3700 /uL (1100-4500); Lymphocytes Percent Auto 42.4 % (25-40); Mean Corpuscular Hemoglobin 26.5 PG (26-34); Mean Corpuscular Volume 77.9 fL (80-100); Monocytes Absolute Auto 700 /uL (0-900); Monocytes Percent Auto 7.5 % (3-14); Neutrophils Absolute Auto 4200 /uL (1500-7000); Platelet Count 287 X10^3/uL (150-400); Red Blood Cell Count 4.83 X10^6/uL (4.0-5.2); White Blood Cell Count 8.8 X10^3/uL (4.5-11.0)
[2024-09-28 03:33] LABS: Alanine Aminotransferase 17 IU/L (<35); Albumin 4.5 g/dL (3.5-5.0); Albumin Globulin Ratio 1.4 (1.0-2.8); Alkaline Phosphatase 89 U/L (38-126); Aspartate Aminotransferase 22 IU/L (14-36); Bilirubin Total 0.9 mg/dL (0.2-1.3); Blood Urea Nitrogen 15 mg/dL (7-17); Calcium 8.5 mg/dL (8.4-10.2); Carbon Dioxide 22 mmol/L (22-32); Chloride 107 mmol/L (98-107); Estimated Glomerular Filt Rate > 60 mL/min (>60); Globulin 3.3 g/dL (1.7-4.1); Glucose 114 mg/dL (70-99); HEMOLYSIS 16 (0-50); Sodium 140 mmol/L (137-145); Total Protein 7.8 g/dL (6.3-8.2)
[2024-09-28 03:55] LABS: Bacteria Urine None Seen; Culture Indicated Urine Cult Not Indicated; RBC Urine 5-10/HPF (0-5/HPF); Squamous Epithelial Cell Urine 1-5 /HPF (0-5/HPF); Urine Volume 10mL (spun); WBC Urine None Seen (0-5/HPF)
[2024-09-28] MEDS: KETOROLAC 30 MG/ML VIAL 15 MG IV (04:11)
[2024-09-28] MEDS: HYDROMORPHONE 0.5 MG INJ IV (04:12)
[2024-09-28 04:19] VITALS: BP 130/77; PULSE 63; RESP 17; O2SAT 99
== END 2024-09-28 04:27 | disposition home or self-care (01) ==
PROVIDERS: Emergency Provider Emergency Medicine; PCP Registered Nurse
DX: G89.18 Other acute postprocedural pain (principal)
CPT/HCPCS: 36415; 71045; 80053; 81003; 81015; 85025; 96374; 96375; 99284; J1171; J1885

== ENCOUNTER 2024-10-03 12:51 | Emergency (ER) | payer OTHER, SELFPAY ==
[2024-10-03 12:54] VITALS: BP 137/85; PULSE 104; RESP 18; TEMP 36.8; O2SAT 97; BMI 46.9
--- NOTE | 2024-10-03 13:56 | DI.US.S_ITS ---
PROCEDURE: US PELVIC COMPLETE INDICATIONS: LEFT ADNEXAL PAIN TECHNIQUE: Real-time scanning was performed of the pelvic organs, with image documentation. Additional endovaginal scanning was necessary due to incomplete visualization of the adnexal and endometrial structures by transabdominal scanning. COMPARISON: [facility], , US PELVIC COMPLETE, 09/13/2024, 13:39. FINDINGS: Uterus: 7.8 x 2.9 x 3.2 cm. Endometrium measures 4 mm. Ovaries: Nonenlarged ovaries, measuring 7 cc on the right and 3 cc on the left. Color and spectral flows identified with Doppler imaging. Other: No pathologic free fluid. IMPRESSION: Nonenlarged ovaries, without current evidence of torsion. Unremarkable sonographic appearance of the uterus. Dictated by: Franc Salcedo M.D. on 10/03/2024 at 14:44 Approved by: Franc Salcedo M.D. on 10/03/2024 at 14:45
--- NOTE | 2024-10-03 14:01 | PC.NURSE ---
Patient reports vomiting several times yesterday and has been having vaginal spotting of blood since surgery last week with Dr. Tong. Margaret Lundberg notified.
--- NOTE | 2024-10-03 16:06 | DI.CT.S_ITS ---
PROCEDURE: CT ABDOMEN PELVIS W CON INDICATIONS: pain TECHNIQUE: After the administration of intravenous contrast, axial sections acquired from the lung bases to the pubic symphysis. Coronal and sagittal reformats were performed. For radiation dose reduction, the following was used: automated exposure control, adjustment of mA and/or kV according to patient size. COMPARISON: None. FINDINGS: Image quality: Diagnostic. Lower Chest: No significant findings. ABDOMEN: Liver: No solid mass. Gallbladder: No radiopaque gallstones or wall thickening. Biliary ducts: No biliary dilation. Pancreas: No ductal dilation. Spleen: Size is within normal limits. Adrenal Glands: No adrenal nodules. Kidneys and Ureters: No hydronephrosis. No solid mass. No complex renal cystic lesion which requires follow up. Stomach and Bowel: Normal colonic caliber, without significant wall thickening. The appendix is normal. Peritoneum: No abnormal intraperitoneal fluid. No free air. Ventral Wall: No significant ventral hernia. Abdominal Nodes: No retroperitoneal or mesenteric adenopathy by size criteria. Vessels: Aorta and inferior vena cava are normal in size. PELVIS: Pelvic Organs: Unremarkable. Bladder: No bladder wall thickening, accounting for underdistention. Pelvic Nodes: No enlarged lymph nodes. Miscellaneous: No inguinal hernias are seen. Bones: No aggressive osseous abnormality. IMPRESSION: No acute intra-abdominal abnormality seen. Dictated by: Joe Handy M.D. on 10/03/2024 at 18:04 Approved by: Joe Handy M.D. on 10/03/2024 at 18:07
[2024-10-03 17:04] LABS: Appearance Urine UA CLEAR; Bilirubin Urine UA NEGATIVE (NEGATIVE); Color Urine UA YELLOW; Glucose Urine UA NEGATIVE (Negative); Ketones Urine UA TRACE (NEGATIVE); Leukocyte Esterase Urine UA NEGATIVE (NEGATIVE); Nitrite Urine UA NEGATIVE (Negative); Occult Blood Urine UA TRACE-INTACT (Negative); Protein Urine UA 1+ (Negative); Specific Gravity Urine UA >=1.030 (1.000-1.035); Urobilinogen Urine UA 0.2 E.U./dL (0.2); pH Urine UA 5.5 (4.5-8.0)
[2024-10-03 17:05] LABS: Pregnancy Test Urine Negative (Negative)
[2024-10-03 17:12] LABS: RBC Urine 0-1/HPF (0-5/HPF); Urine Volume 10mL (spun); WBC Urine 1-5/HPF (0-5/HPF)
[2024-10-03 17:13] LABS: Bacteria Urine Moderate (10-30); Culture Indicated Urine Cult Not Indicated; Mucus Urine 3+ (Negative); Squamous Epithelial Cell Urine 5-10 /HPF (0-5/HPF)
[2024-10-03 17:33] LABS: Add Manual Diff / Slide Review NO; Basophils Absolute Auto 100 /uL (0-100); Basophils Percent Auto 0.6 % (0-2); Eosinophils Absolute Auto 100 /uL (0-450); Eosinophils Percent Auto 1.2 % (2-4); Hematocrit 39.2 % (36-46); Hemoglobin 13.3 g/dL (12.0-16.0); Lymphocytes Absolute Auto 2800 /uL (1100-4500); Mean Corpuscular HGB Conc 33.9 % (30-36); Mean Corpuscular Hemoglobin 26.3 PG (26-34); Mean Corpuscular Volume 77.6 fL (80-100); Monocytes Absolute Auto 600 /uL (0-900); Neutrophils Absolute Auto 4900 /uL (1500-7000); Neutrophils Percent Auto 58.2 % (50-75); Platelet Count 323 X10^3/uL (150-400); Red Blood Cell Count 5.04 X10^6/uL (4.0-5.2); White Blood Cell Count 8.4 X10^3/uL (4.5-11.0)
[2024-10-03 17:42] LABS: INR 1.1 (0.9-1.3)
[2024-10-03 17:44] LABS: PTT Partial Thromboplastin Tim 34 SECONDS (25.1-36.5)
[2024-10-03 17:45] LABS: Alanine Aminotransferase 16 IU/L (<35); Albumin 4.6 g/dL (3.5-5.0); Albumin Globulin Ratio 1.2 (1.0-2.8); Alkaline Phosphatase 98 U/L (38-126); Aspartate Aminotransferase 21 IU/L (14-36); BUN Creatinine Ratio 20.9 (6-22); Bilirubin Total 1.1 mg/dL (0.2-1.3); Blood Urea Nitrogen 14 mg/dL (7-17); Calcium 9.3 mg/dL (8.4-10.2); Carbon Dioxide 21 mmol/L (22-32); Chloride 104 mmol/L (98-107); Estimated Glomerular Filt Rate > 60 mL/min (>60); Globulin 3.8 g/dL (1.7-4.1); Glucose 97 mg/dL (70-99); HEMOLYSIS < 15 (0-50); Lipase 53 U/L (23-300); Sodium 138 mmol/L (137-145); Total Protein 8.4 g/dL (6.3-8.2)
[2024-10-03] MEDS: KETOROLAC 30 MG/ML VIAL IV (18:18)
[2024-10-03 19:26] VITALS: BP 136/84; PULSE 94; RESP 16; O2SAT 98
--- NOTE | 2024-10-04 11:27 | ED.ABDPAIN ---
HPI - Abdominal Pain <Henry Lundberg PA-C - Last Filed: 10/04/24 11:37> General Chief Complaint: Urogenital-Female Stated Complaint: obgyn sent to get checked for a cist Time Seen by Provider: 10/03/24 13:05 Source: patient Mode of arrival: Ambulatory History of Present Illness HPI narrative: 24-year-old female with past medical history ovarian cysts, PCOS presents to the ED with 3 days of left-sided abdominal pain. Patient had a right-sided ovarian cystectomy on 09/26/2024 which was a laparoscopic procedure. Patient started experiencing sudden onset left-sided abdominal/pelvic pain, which patient describes as very similar to the right-sided ovarian cyst pain. Patient states that she was quite nauseous and vomited yesterday due to the pain. No fever, chills, chest pain, shortness of breath, dysuria, lightheadedness, dizziness, syncope. Related Data Home Medications ?Medication ?Instructions ?Recorded ?Confirmed duloxetine 30 mg capsule,delayed 30 mg PO DAILY 09/22/24 09/26/24 release hydroxyzine HCl 25 mg tablet 25 mg PO Q6H 09/22/24 09/26/24 metformin 500 mg tablet,extended 500 mg PO DAILY 09/22/24 09/26/24 release 24 hr prazosin 2 mg capsule 2 mg PO BEDTIME 09/22/24 09/26/24 quetiapine 300 mg tablet 350 mg PO DAILY 09/22/24 09/26/24 Previous Rx's ?Medication ?Instructions ?Recorded ondansetron 4 mg disintegrating 4 mg PO Q8H PRN nausea and 11/15/23 tablet vomiting #30 tabs ibuprofen 800 mg tablet 800 mg PO Q8H #10 tabs 09/26/24 oxycodone 5 mg capsule 5 mg PO Q8H PRN pain #5 caps 09/26/24 oxycodone 5 mg tablet 5 mg PO Q6H PRN pain #10 tabs 09/28/24 Allergies Allergy/AdvReac Type Severity Reaction Status Date / Time latex Allergy Rash Verified 10/03/24 12:56 Penicillins Allergy Hives Verified 10/03/24 12:56 prochlorperazine (From AdvReac Anxiety Verified 10/03/24 12:56 Compazine) Review of Systems <Henry Lundberg PA-C - Last Filed: 10/04/24 11:37> Constitutional Constitutional: Denies chills, Denies fatigue, Denies fever(s), Denies frequent falls, Denies lethargy and Denies weakness Eyes Eyes: Denies change in vision, Denies eye discharge, Denies irritation and Denies loss of vision ENT Ears, Nose, Mouth, and Throat: Denies change in voice, Denies dizziness, Denies neck pain, Denies sore throat and Denies throat swelling Cardiovascular Cardiovascular: Denies chest pain, Denies irregular heart rhythm, Denies lightheadedness, Denies palpitations, Denies dyspnea, Denies dyspnea on exertion and Denies orthopnea Respiratory Respiratory: Denies cough, Denies dyspnea, Denies dyspnea on exertion and Denies wheezing Gastrointestinal Gastrointestinal: Reports abdominal pain, Denies change in bowel habits, Denies diarrhea, Reports nausea and Reports vomiting Musculoskeletal Musculoskeletal: Denies neck pain and Denies numbness Integumentary/Breasts Skin/Breast: Denies pruritus, Denies erythema, Denies rash and Denies wounds Neurologic Neurologic: Denies behavioral changes, Denies confusion, Denies dizziness, Denies frequent falls, Denies loss of vision, Denies numbness and Denies weakness Psychiatric Psychiatric: Denies anxiety, Denies behavioral changes, Denies confusion, Denies depression, Denies homicidal ideation and Denies suicidal ideation Endocrine Endocrine: Denies fatigue, Denies flushing and Denies palpitations Hematologic/Lymphatic Hematologic/Lymphatic: Denies easy bruising Allergic/Immunologic Allergic/Immunologic: Denies urticaria, Denies throat swelling and Denies wheezing Patient History <Henry Lundberg PA-C - Last Filed: 10/04/24 11:37> Medical History Deep dyspareunia in female Ovarian cyst Neuropathy with IgA monoclonal gammopathy HSP (Henoch Schonlein purpura) Prediabetes PCOS (polycystic ovarian syndrome) Social History Smoking Status: Former smoker alcohol intake: current Smoking Status: Former smoker tobacco type: vaping alcohol intake frequency: holidays/special occasions only Exam <Henry Lundberg PA-C - Last Filed: 10/04/24 11:37> Narrative Exam Narrative: Const General:?cooperative, healthy appearing and comfortable [facility] Head:?normal to inspection Ears:?hearing grossly normal bilaterally Nose:?external nose normal Face and sinus:?normal facial exam and sinuses nontender Mouth:?oral mucosae normal Throat:?posterior oropharynx normal Eyes General:?appearance normal, both eyes and all related structures Neck Neck:?normal visual inspection and no lymphadenopathy noted Resp Effort & Inspection:?normal respiratory effort Auscultation:?clear to auscultation bilaterally Cardio Rate:?regular rate Rhythm:?regular rhythm GI Abdomen is soft, nondistended. Abdomen is tender in the left upper and lower quadrants. Neuro General:?patient alert, patient awake and patient oriented x3 Initial Vital Signs Initial Vital Signs: Vital Signs Temperature 98.2 F 10/03/24 12:54 Pulse Rate 104 H 10/03/24 12:54 Respiratory Rate 18 10/03/24 12:54 Blood Pressure 137/85 10/03/24 12:54 Pulse Oximetry 97 10/03/24 12:54 Oxygen Delivery Method Room Air 10/03/24 12:54 <Juliet Rivero DO - Last Filed: 10/04/24 12:15> Initial Vital Signs Initial Vital Signs: Vital Signs Temperature 98.2 F 10/03/24 12:54 Pulse Rate 104 H 10/03/24 12:54 Respiratory Rate 18 10/03/24 12:54 Blood Pressure 137/85 10/03/24 12:54 Pulse Oximetry 97 10/03/24 12:54 Oxygen Delivery Method Room Air 10/03/24 12:54 Course <Henry Lundberg PA-C - Last Filed: 10/04/24 11:37> Orders Ordered: Discontinued Medications Ketorolac Tromethamine (Ketorolac 30 Mg/Ml Vial) 30 mg IV NOW ONE Stop: 10/03/24 17:11 Last Admin: 10/03/24 18:18 Dose: 30 mg Documented By: RB <DO Avni Coley Last Filed: 10/04/24 12:15> Orders Ordered: Discontinued Medications Ketorolac Tromethamine (Ketorolac 30 Mg/Ml Vial) 30 mg IV NOW ONE Stop: 10/03/24 17:11 Last Admin: 10/03/24 18:18 Dose: 30 mg Documented By: RB MDM - Abdominal Pain <DAVE Morley Last Filed: 10/04/24 11:37> Lab Data 10/03/24 17:20 10/03/24 17:20 Labs: Lab Results 10/03/24 10/03/24 Range/Units 16:40 17:20 WBC 8.4 (4.5-11.0) X10^3/uL RBC 5.04 (4.0-5.2) X10^6/uL Hgb 13.3 (12.0-16.0) g/dL Hct 39.2 (36-46) % MCV 77.6 L (80-100) fL MCH 26.3 (26-34) PG MCHC 33.9 (30-36) % RDW 15.0 H (11.6-14.8) % Plt Count 323 (150-400) X10^3/uL Neut % (Auto) 58.2 (50-75) % Lymph % (Auto) 33.0 (25-40) % Davison % (Auto) 7.0 (3-14) % Eos % (Auto) 1.2 L (2-4) % Baso % (Auto) 0.6 (0-2) % Neut # (Auto) 4900 (3733-2668) /uL Lymph # (Auto) 2800 (5392-5348) /uL Davison # (Auto) 600 (0-900) /uL Eos # (Auto) 100 (0-450) /uL Baso # (Auto) 100 (0-100) /uL PT 13.0 H (9.4-12.5) SECONDS INR 1.1 (0.9-1.3) APTT 34 (25.1-36.5) SECONDS Sodium 138 (137-145) mmol/L Potassium 4.0 (3.4-5.1) mmol/L Chloride 104 (98-107) mmol/L Carbon Dioxide 21 L (22-32) mmol/L BUN 14 (7-17) mg/dL Creatinine 0.67 (0.52-1.04) mg/dL Estimated GFR > 60 (>60) mL/min BUN/Creatinine Ratio 20.9 (6-22) Glucose 97 (70-99) mg/dL Calcium 9.3 (8.4-10.2) mg/dL Total Bilirubin 1.1 (0.2-1.3) mg/dL AST 21 (14-36) IU/L ALT 16 (<35) IU/L Alkaline Phosphatase 98 (38-126) U/L Total Protein 8.4 H (6.3-8.2) g/dL Albumin 4.6 (3.5-5.0) g/dL Globulin 3.8 (1.7-4.1) g/dL Albumin/Globulin Ratio 1.2 (1.0-2.8) Lipase 53 (23-300) U/L Urine Color Yellow Urine Appearance Clear Urine pH 5.5 (4.5-8.0) Ur Specific Carbon >=1.030 H (1.000-1.035) Urine Protein 1+ H (Negative) Urine Glucose (UA) Negative (Negative) g/dL Urine Ketones Trace H (NEGATIVE) Urine Occult Blood Trace-intact (Negative) Urine Nitrate Negative (Negative) Urine Bilirubin Negative (NEGATIVE) Urine Urobilinogen 0.2 (0.2) E.U./dL Ur Leukocyte Esterase Negative (NEGATIVE) Urine RBC 0-1/hpf (0-5/HPF) Urine WBC 1-5/hpf (0-5/HPF) Ur Squamous Epith Cells 5-10 /hpf H (0-5/HPF) Urine Bacteria Moderate (10-30) H (None) Urine Mucus 3+ H (Negative) Ur Culture Indicated? Cult not indicated Vol Urine Centrifuged 10ml (spun) Urine Test Negative (Negative) MDM Narrative Medical decision making narrative: 24-year-old female with past medical history ovarian cysts presents to the ED with 3 days of left-sided abdominal pain. Concern for left-sided ovarian cyst rupture versus ovarian torsion versus surgical complications versus diverticulitis versus constipation versus UTI versus other intra-abdominal pathology versus other. Will obtain labs, UA, urine hCG, pelvic ultrasound. Will consider CT abdomen pelvis. Patient given Toradol for pain. Labs unremarkable. UA without UTI. Urine is negative. Pelvic ultrasound shows nonenlarged ovaries, without current evidence of torsion. Unremarkable sonographic appearance of the uterus. CT abdomen pelvis was obtained which shows no acute intra-abdominal abnormalities. The appendix is normal. Discussed findings with patient. Patient's symptoms did improve with the Toradol. Patient did endorse that she has had some constipation since the surgery. Discussed with patient that her symptoms might be due to constipation versus pain from surgical recovery. Recommend bowel regimen with MiraLax, plenty of water and fiber. Recommend continuing Tylenol, ibuprofen for discomfort. Recommend follow-up with OBGYN as soon as possible. ED return precautions discussed with patient. Patient verbalized understanding. Medical records reviewed: Yes <Juliet [place] Rivero DO - Last Filed: 10/04/24 12:15> Lab Data Labs: Lab Results 10/03/24 10/03/24 Range/Units 16:40 17:20 WBC 8.4 (4.5-11.0) X10^3/uL RBC 5.04 (4.0-5.2) X10^6/uL Hgb 13.3 (12.0-16.0) g/dL Hct 39.2 (36-46) % MCV 77.6 L (80-100) fL MCH 26.3 (26-34) PG MCHC 33.9 (30-36) % RDW 15.0 H (11.6-14.8) % Plt Count 323 (150-400) X10^3/uL Neut % (Auto) 58.2 (50-75) % Lymph % (Auto) 33.0 (25-40) % Davison % (Auto) 7.0 (3-14) % Eos % (Auto) 1.2 L (2-4) % Baso % (Auto) 0.6 (0-2) % Neut # (Auto) 4900 (7329-6075) /uL Lymph # (Auto) 2800 (8496-0736) /uL Davison # (Auto) 600 (0-900) /uL Eos # (Auto) 100 (0-450) /uL Baso # (Auto) 100 (0-100) /uL PT 13.0 H (9.4-12.5) SECONDS INR 1.1 (0.9-1.3) APTT 34 (25.1-36.5) SECONDS Sodium 138 (137-145) mmol/L Potassium 4.0 (3.4-5.1) mmol/L Chloride 104 (98-107) mmol/L Carbon Dioxide 21 L (22-32) mmol/L BUN 14 (7-17) mg/dL Creatinine 0.67 (0.52-1.04) mg/dL Estimated GFR > 60 (>60) mL/min BUN/Creatinine Ratio 20.9 (6-22) Glucose 97 (70-99) mg/dL Calcium 9.3 (8.4-10.2) mg/dL Total Bilirubin 1.1 (0.2-1.3) mg/dL AST 21 (14-36) IU/L ALT 16 (<35) IU/L Alkaline Phosphatase 98 (38-126) U/L Total Protein 8.4 H (6.3-8.2) g/dL Albumin 4.6 (3.5-5.0) g/dL Globulin 3.8 (1.7-4.1) g/dL Albumin/Globulin Ratio 1.2 (1.0-2.8) Lipase 53 (23-300) U/L Urine Color Yellow Urine Appearance Clear Urine pH 5.5 (4.5-8.0) Ur Specific Carbon >=1.030 H (1.000-1.035) Urine Protein 1+ H (Negative) Urine Glucose (UA) Negative (Negative) g/dL Urine Ketones Trace H (NEGATIVE) Urine Occult Blood Trace-intact (Negative) Urine Nitrate Negative (Negative) Urine Bilirubin Negative (NEGATIVE) Urine Urobilinogen 0.2 (0.2) E.U./dL Ur Leukocyte Esterase Negative (NEGATIVE) Urine RBC 0-1/hpf (0-5/HPF) Urine WBC 1-5/hpf (0-5/HPF) Ur Squamous Epith Cells 5-10 /hpf H (0-5/HPF) Urine Bacteria Moderate (10-30) H (None) Urine Mucus 3+ H (Negative) Ur Culture Indicated? Cult not indicated Vol Urine Centrifuged 10ml (spun) Urine Test Negative (Negative) Discharge Plan Departure Patient Disposition: Home Clinical Impression: Abdominal pain Qualifiers: Abdominal location: generalized Qualified Code(s): R10.84 - Generalized abdominal pain Instructions: DI for Abdominal Pain-Adult Activity Restrictions/Additional Instructions: You were evaluated in the ED today for abdominal pain. Your labs, urine, CT abdomen pelvis and ultrasound were normal. It is unclear why you were experiencing this left-sided abdominal pain. It could be that you are experiencing some pain from the surgery as well as pain from constipation. You may take MiraLax nightly to keep your stools soft and easy to pass. You may also take 600-800 mg of ibuprofen every 8 hours with food for pain. Please follow-up with your yard switcher as soon as possible. Return to the ED if you have worsening symptoms. Prescriptions: No Action hydroxyzine HCl 25 mg tablet 25 mg PO Q6H duloxetine 30 mg capsule,delayed release(DR/EC) 30 mg PO DAILY metformin 500 mg tablet extended release 24 hr 500 mg PO DAILY Patient Comments: Currently taking once daily prazosin 2 mg capsule 2 mg PO BEDTIME quetiapine 300 mg tablet 350 mg PO DAILY ibuprofen 800 mg tablet 800 mg PO Q8H Qty: 10 0RF Rx Instructions: take with food oxycodone 5 mg capsule 5 mg PO Q8H PRN (Reason: pain) Qty: 5 0RF oxycodone 5 mg tablet 5 mg PO Q6H PRN (Reason: pain) Qty: 10 0RF ondansetron 4 mg tablet,disintegrating 4 mg PO Q8H PRN (Reason: nausea and vomiting) Qty: 30 0RF Referrals: Filomena Fleming ARNP [Primary Care Provider, Family Practice] Stand Alone Forms: Patient Portal/API ED Sign-out <Juliet Rivero DO - Last Filed: 10/04/24 12:15> Cosign ED Attending Cosconstanzaature Attestation: I was immediately available in the department for consultation. Supervised by Juleit Rivero DO
== END 2024-10-03 19:27 | disposition home or self-care (01) ==
PROVIDERS: Emergency Provider Student in an Organized Health Care Education/Training Program; PCP Registered Nurse
DX: R10.84 Generalized abdominal pain (principal); Z87.42 Personal history of other diseases of the female genital tract
CPT/HCPCS: 36415; 74177; 76830; 76856; 80053; 81001; 81025; 83690; 85025; 85610; 85730; 93975; 96374; 99284; J1885; Q9967

== ENCOUNTER 2024-10-24 07:40 | Day surgery (SDC) | payer OTHER, SELFPAY ==
[2024-10-20 08:23] VITALS: BMI 46.9
[2024-10-24] VITALS (11 sets, daily range): BP systolic 87–132; BP diastolic 46–86; PULSE 21–99; RESP 16–99; TEMP 36.1–37.4; O2SAT 97–99; BMI 46.0
[2024-10-24] MEDS: ACETAMINOPHEN IV 1,000 MG/100 ML VIAL 400 MG IV (08:22)
[2024-10-24] MEDS: SCOPOLAMINE 1 PATCH TOP (08:22)
[2024-10-24] MEDS: LACTATED RINGERS 1,000 ML 42 ML IV ×2 (08:23→11:10)
--- NOTE | 2024-10-24 09:23 | PM.PREOP ---
Pre-operative Note Interval Note History & Physical reviewed/Exam performed by Physician: Yes Changes to H&P: No
[2024-10-24] MEDS: CEFAZOLIN VIAL 3 GM in SODIUM CHLORIDE 0.9% 100 ML IV (10:00)
--- NOTE | 2024-10-24 10:20 | SUR.OPER ---
Supine on padded OR bed, head on pillow, arms secured on padded arm boards at <90 degrees abduction, legs uncrossed, safety belt at torso, tape over blanket over non operative lower leg, operative leg bumped with blankets. Operative hip bumped with blankets by Dr. Cerda
[2024-10-24] MEDS: BUPIVACAINE 0.25% (PF) VIAL 30 ML INJ (10:26)
--- NOTE | 2024-10-24 11:03 | SUR.OPER ---
During positioning prior to procedure start, wedge was placed under pt torso per anesthesia, arm boards padded with pillows and gel strap to maintain proper body alignment.
--- NOTE | 2024-10-24 12:16 | DI.RAD.S_ITS ---
PROCEDURE: XR ANKLE LT MIN 4V INDICATIONS: ANKLE FRACTURE TECHNIQUE: 4 views of the ankle were acquired. COMPARISON: [facility], CR, XR ANKLE LT MIN 3V, 10/18/2024, 11:17. FINDINGS: Four fluoroscopic spot images of the left ankle are submitted. Procedure is reported separately under operative report. ORIF of the distal left fibula with 2 threaded screws at the medial malleolus. Fluoroscopy data is not delineated. IMPRESSION: Intraoperative fluoroscopy. Dictated by: Shaggy Agudelo M.D. on 10/24/2024 at 12:33 Approved by: Shaggy Agudelo M.D. on 10/24/2024 at 12:35
--- NOTE | 2024-10-24 12:16 | DI.RAD.S_ITS ---
PROCEDURE: XR ANKLE LT MIN 3V INDICATIONS: ANKLE REPAIR TECHNIQUE: 3 views of the ankle were acquired. COMPARISON: [facility], CR, XR ANKLE LT MIN 3V, 10/24/2024, 11:01. FINDINGS: Bones: Overlying cast partially obscures the fine osseous and soft tissue detail. Status post fixation of medial and lateral malleolus using plate and screw construct. No evidence of hardware complication. Alignment appears anatomic. Soft tissues: No tibiotalar joint effusion. Achilles tendon appears normal. IMPRESSION: Expected postoperative appearance of bimalleolar fixation. Approved by: Brianda Mansfield M.D.,Ph.D. on 10/24/2024 at 20:21
[2024-10-24] MEDS: HYDROMORPHONE 1 MG INJ IV ×2 (12:49→13:08)
--- NOTE | 2024-10-24 12:52 | P.OP_ITS ---
Operative Date/Time/Diagnoses Date of procedure: 10/24/24 Time of procedure: 13:01 Pre-op diagnosis: Unstable left ankle fracture Post-op diagnosis: same Procedure & Clinicians Procedure: LEFT Ankle ORIF Same procedure(s) as scheduled: Yes Surgeon: Shaggy Cerda Central Service Tech: Devi Mcginnis Anesthesia Type: General Operative Notes Findings: Unstable Ankle Fracgture Closure Type: primary Specimen(s): none sent Applied: other Estimated Blood Loss (mL): 20 Blood products transfused: none Tourniquet time (min): 120 Procedure in detail: Laterality: Left Preoperative diagnosis: Unstable left ankle fracture Procedure performed: Open Reduction Internal Fixation of Ankle Fracture Postoperative diagnosis: Same Primary Surgeon: Shaggy Cerda MD Secondary Surgeon: LYNN Mcknight Physician Central Service Tech was used throughout the entirety of the case. ?This operation could not have been safely performed (without compromising the technical results or length of the procedure) without the assistance of a skilled teachers assistant. A teachers assistant was medically necessary for room set up, patient positioning, draping, retraction, visualization, reduction, fixation and closure. ?They were essential ?for the success of the case. Anesthesia: General EBL: 20 ml Tourniquet: 120 minutes @ 250 mmHg Implants: [employer]dy [employer]hew screws and plates; Indication For Surgery: The patient sustained an unstable ankle fracture which required surgery to restore stability and anatomic length, alignment, and rotation. The risks, benefits, and alternatives were discussed. Risks include pain, bleeding, infection, damage to nearby structures and cartilage, lack of symptom relief, malunion, nonunion, implant complications with need for removal, need for further surgery, DVT, PE, stroke, and . Written consent was obtained. Examination Under Anesthesia: An unstable ankle Operative Findings: Unstable ankle fracture, no further instability after ORIF of the medial malleolus and lateral malleolus Procedure in Detail: The patient was met in the pre-operative hold area. Consent was verified and operative extremity was signed. The patient then met with anesthesia and was brought back to the operating room. The patient was placed supine on the operating table. A general anesthetic was administered. The extremity was then prepped and draped in the usual sterile fashion. A timeout was performed per protocol. All were in agreement and we proceeded. A direct lateral approach to the lateral malleolus was made. Sharp dissection was carried out distally and scissor dissection proximally. The superficial peroneal nerve was sought out but not seen during the case. The fracture site was identified and 2mm of periosteum was freed to allow for an adequate assessment of fracture reduction. Hematoma and blocks to reduction were removed from the fracture site. The fracture site was irrigated. It was found that she has 3 fragments. There was the fibular shaft, and 2 fragments into the distal fibula. A reduction was performed and held with a point to point clamp and K-wire. Three 2.7mm lag screws were placed perpendicular, compressing the fracture sites nicely. A distal fibular plate was placed laterally and the position was confirmed with fluoroscopy. The plate was cheated slightly posteriorly to allow for the appropriate trajectory in the case syndesmosis fixation was needed. The plate was secured with screws proximally and distally. The reduction was maintained throughout. We then turned our attention to the medial malleolar fracture. We had to make a elongated incision due to her adipose tissue to get adequate exposure. A [id number]-rp-cysgo reduction clamp was utilized across the medial malleolus in order to hold the fracture reduction. We had good visualization anteriorly that showed a good reduction. Two K-wires were placed parallel which held the fracture fragment. We then over-reamed the near cortex and placed partially threaded cannulated screws. When we attempted to place the 2nd screw it was identified that it did not have enough room due to the location of the 1st screw. At this point we had to change trajectories so that the more anterior screw ended up directed posteriorly. This held the medial malleolus in good reduction. Again we had a good cortical read anteriorly and laterally. Final images were taken. We also stressed the syndesmosis and there was no clear space widening on the medial aspect of the tibiotalar joint. The wound was closed in a layered fashion with 0-vicryl in the deep tissues, covering the plate, 2-0 in the dermis, and running nylon in the skin. Local anesthetic was placed. A sterile dressing and splint were applied. The patient was awakened and transferred to the recovery room. Postoperative Plan: Same day surgery discharge NWB with splint for 2 weeks Follow up in 2 weeks Shaggy Cerda MD Complications: none Post-operative Condition: stable Disposition: PACU
[2024-10-24] MEDS: TRAMADOL 50 MG TABLET PO (13:22)
== END 2024-10-24 14:22 | disposition home or self-care (01) ==
PROVIDERS: PCP Registered Nurse; Referring Provider Orthopaedic Surgery; Visit Provider Orthopaedic Surgery
PROC: (CPT 27814; principal; 2024-10-24 09:45)
DX: S82.842A Displaced bimalleolar fracture of left lower leg, initial encounter for closed fracture (principal); W17.89XA Other fall from one level to another, initial encounter
CPT/HCPCS: 27814; 73610; 76000; 81025; C1713; J0131; J0690; J1100; J1171; J1885; J2250; J2405; J2704; J3010

== ENCOUNTER 2025-03-28 13:38 | Emergency (ER) | payer OTHER, SELFPAY ==
[2025-03-28 13:55] VITALS: BP 141/80; PULSE 105; RESP 16; TEMP 36.9; O2SAT 97; BMI 44.2
--- NOTE | 2025-03-28 14:02 | DI.CT.S_ITS ---
PROCEDURE: CT ABDOMEN PELVIS W CON INDICATIONS: Left flank pain TECHNIQUE: After the administration of intravenous contrast, axial sections acquired from the lung bases to the pubic symphysis. Coronal and sagittal reformats were performed. For radiation dose reduction, the following was used: automated exposure control, adjustment of mA and/or kV according to patient size. COMPARISON: [facility], CT, CT ABDOMEN PELVIS W CON, 10/03/2024, 17:26. FINDINGS: Image quality: Diagnostic. Lower Chest: No significant findings. ABDOMEN: Liver: No solid mass. Gallbladder: No radiopaque gallstones or wall thickening. Biliary ducts: No biliary dilation. Pancreas: No ductal dilation. Spleen: Size is within normal limits. Adrenal Glands: No adrenal nodules. Kidneys and Ureters: No hydronephrosis. No solid mass. No complex renal cystic lesion which requires follow up. Stomach and Bowel: Normal colonic caliber, without significant wall thickening. Peritoneum: No abnormal intraperitoneal fluid. No free air. Ventral Wall: No significant ventral hernia. Abdominal Nodes: No retroperitoneal or mesenteric adenopathy by size criteria. Vessels: Aorta and inferior vena cava are normal in size. PELVIS: Pelvic Organs: Unremarkable. Bladder: No bladder wall thickening, accounting for underdistention. Pelvic Nodes: No enlarged lymph nodes. Miscellaneous: No inguinal hernias are seen. Bones: No aggressive osseous abnormality. IMPRESSION: No acute abdominal process identified. Dictated by: Feliciano Leiva M.D. on 03/28/2025 at 15:55 Approved by: Feliciano Leiva M.D. on 03/28/2025 at 15:58
--- NOTE | 2025-03-28 14:04 | ED.BACK ---
HPI - Back Pain/Injury General Chief Complaint: Back Pain/Injury Stated Complaint: Lower left back pain,possible Cyst or Kidney stone Time Seen by Provider: 03/28/25 14:00 Source: patient and RN notes reviewed History of Present Illness HPI Narrative: 24-year-old female with past medical history IgA nephropathy, PCOS presents to the ED with 2 days of left-sided flank pain. Patient also endorses nausea. Patient describes the pain as a sharp pain in the left flank. Comes every few minutes. Rates the pain at 6/10. No fever, chills, chest pain, shortness of breath, dysuria, lightheadedness, dizziness, syncope. Patient does not get her periods, she is on Nexplanon. Patient is on Zepbound for the past 2 months and tolerating it well. Related Data Home Medications ?Medication ?Instructions ?Recorded ?Confirmed duloxetine 30 mg capsule,delayed 30 mg PO DAILY 09/22/24 03/06/25 release hydroxyzine HCl 25 mg tablet 25 mg PO Q6H 09/22/24 03/06/25 prazosin 2 mg capsule 2 mg PO BEDTIME 09/22/24 03/06/25 quetiapine 300 mg tablet 350 mg PO DAILY 09/22/24 03/06/25 tirzepatide (weight loss) 5 mg/0.5 5 mg SUBCUT QWEEK 01/23/25 03/06/25 mL subcutaneous pen injector (Zepbound) Previous Rx's ?Medication ?Instructions ?Recorded ondansetron 4 mg disintegrating 4 mg PO Q8H PRN nausea and 11/15/23 tablet vomiting #30 tabs ibuprofen 800 mg tablet 800 mg PO Q8H #10 tabs 09/26/24 acetaminophen 500 mg tablet 500 mg PO Q8H PRN pain #120 tabs 10/18/24 aspirin 81 mg tablet 81 mg PO DAILY #30 tabs 10/18/24 ondansetron 4 mg disintegrating 4 mg PO Q8H PRN nausea and 03/28/25 tablet vomiting #14 tabs Allergies Allergy/AdvReac Type Severity Reaction Status Date / Time latex Allergy Rash Verified 03/28/25 13:55 Penicillins Allergy Hives Verified 03/28/25 13:55 oxycodone AdvReac Nausea Verified 03/28/25 13:55 prochlorperazine (From AdvReac Anxiety Verified 03/28/25 13:55 Compazine) Review of Systems Constitutional Constitutional: Denies chills, Denies fatigue, Denies fever(s), Denies frequent falls, Denies lethargy and Denies weakness Eyes Eyes: Denies change in vision, Denies eye discharge, Denies irritation and Denies loss of vision ENT Ears, Nose, Mouth, and Throat: Denies change in voice, Denies dizziness, Denies neck pain, Denies sore throat and Denies throat swelling Cardiovascular Cardiovascular: Denies chest pain, Denies irregular heart rhythm, Denies lightheadedness, Denies palpitations, Denies dyspnea, Denies dyspnea on exertion and Denies orthopnea Respiratory Respiratory: Denies cough, Denies dyspnea, Denies dyspnea on exertion and Denies wheezing Gastrointestinal Gastrointestinal: Denies abdominal pain, Denies change in bowel habits, Denies diarrhea, Reports nausea and Denies vomiting Comments: L flank pain Musculoskeletal Musculoskeletal: Denies neck pain and Denies numbness Integumentary/Breasts Skin/Breast: Denies pruritus, Denies erythema, Denies rash and Denies wounds Neurologic Neurologic: Denies behavioral changes, Denies confusion, Denies dizziness, Denies frequent falls, Denies loss of vision, Denies numbness and Denies weakness Psychiatric Psychiatric: Denies anxiety, Denies behavioral changes, Denies confusion, Denies depression, Denies homicidal ideation and Denies suicidal ideation Endocrine Endocrine: Denies fatigue, Denies flushing and Denies palpitations Hematologic/Lymphatic Hematologic/Lymphatic: Denies easy bruising Allergic/Immunologic Allergic/Immunologic: Denies urticaria, Denies throat swelling and Denies wheezing Patient History Medical History Deep dyspareunia in female Ovarian cyst Neuropathy with IgA monoclonal gammopathy HSP (Henoch Schonlein purpura) Prediabetes PCOS (polycystic ovarian syndrome) Surgical History Hx of ovarian cystectomy (09/26/24) Social History household members: significant other Smoking Status: Current every day smoker alcohol intake: current Smoking Status: Current every day smoker tobacco type: vaping alcohol intake frequency: holidays/special occasions only Exam Narrative Exam Narrative: Const General:?cooperative, healthy appearing and comfortable [facility] Head:?normal to inspection Ears:?hearing grossly normal bilaterally Nose:?external nose normal Face and sinus:?normal facial exam and sinuses nontender Mouth:?oral mucosae normal Throat:?posterior oropharynx normal Eyes General:?appearance normal, both eyes and all related structures Neck Neck:?normal visual inspection and no lymphadenopathy noted Resp Effort & Inspection:?normal respiratory effort Auscultation:?clear to auscultation bilaterally Cardio Rate:?regular rate Rhythm:?regular rhythm GI Abdomen is soft, nondistended, nontender to palpation. There is left-sided CVA tenderness. Neuro General:?patient alert, patient awake and patient oriented x3 Initial Vital Signs Initial Vital Signs: Vital Signs Temperature 98.4 F 03/28/25 13:55 Pulse Rate 105 H 03/28/25 13:55 Respiratory Rate 16 03/28/25 13:55 Blood Pressure 141/80 H 03/28/25 13:55 Pulse Oximetry 97 03/28/25 13:55 Oxygen Delivery Method Room Air 03/28/25 13:55 Course Orders Ordered: ED Orders 03/28/25 14:02 CT abdomen pelvis w con Stat 03/28/25 14:06 CBC Auto Diff [Complete Blood Count AUTO DIFF] Stat CMP [Comprehensive Metabolic Panel] Stat Lactate (Lactic Acid) Stat Lipase Stat 03/28/25 14:50 Urine Microscopic Stat 03/28/25 17:16 US pelvic complete Stat Famotidine (Famotidine 20 Mg/2 Ml Vial) 40 mg IV NOW HALLE Last Admin: 03/28/25 16:32 Dose: 40 mg Documented By: RL Discontinued Medications Sodium Chloride (Normal Saline 0.9%) 1,000 mls @ 1,000 mls/hr IV BOLUS ONE Stop: 03/28/25 18:26 Last Infusion: 03/28/25 18:34 Dose: Infused Documented By: Admin: 03/28/25 17:30 Dose: 1,000 mls/hr Documented By: CHANDA Ketorolac Tromethamine (Ketorolac 30 Mg/Ml Vial) 15 mg IV NOW ONE Stop: 03/28/25 14:03 Last Admin: 03/28/25 14:12 Dose: 15 mg Documented By: JANE Ondansetron HCl (Ondansetron 4 Mg/2 Ml Inj) 4 mg IV NOW ONE Stop: 03/28/25 14:03 Last Admin: 03/28/25 14:13 Dose: 4 mg Documented By: JANE Ondansetron HCl (Ondansetron 4 Mg/2 Ml Inj) 4 mg IV NOW ONE Stop: 03/28/25 16:29 Last Admin: 03/28/25 16:32 Dose: 4 mg Documented By: FELICITA Vital Signs Vital signs: Vital Signs - 8 hr 03/28/25 13:55 03/28/25 17:22 Temperature 98.4 F Pulse Rate 105 H 79 Respiratory Rate 16 16 Blood Pressure 141/80 H 128/79 Pulse Oximetry 97 99 Oxygen Delivery Method Room Air Room Air MDM - Back Pain/Injury Lab Data 03/28/25 14:06 03/28/25 14:06 Labs: Lab Results 03/28/25 03/28/25 Range/Units 14:06 14:50 WBC 7.9 (4.5-11.0) X10^3/uL RBC 4.92 (4.0-5.2) X10^6/uL Hgb 12.6 (12.0-16.0) g/dL Hct 37.5 (36-46) % MCV 76.2 L (80-100) fL MCH 25.7 L (26-34) PG MCHC 33.8 (30-36) % RDW 15.3 H (11.6-14.8) % Plt Count 321 (150-400) X10^3/uL Neut % (Auto) 60.2 (50-75) % Lymph % (Auto) 30.8 (25-40) % [place] % (Auto) 6.8 (3-14) % Eos % (Auto) 1.7 L (2-4) % Baso % (Auto) 0.5 (0-2) % Neut # (Auto) 4700 (1218-3386) /uL Lymph # (Auto) 2400 (7870-2502) /uL [place] # (Auto) 500 (0-900) /uL Eos # (Auto) 100 (0-450) /uL Baso # (Auto) 0 (0-100) /uL Sodium 141 (137-145) mmol/L Potassium 4.2 (3.4-5.1) mmol/L Chloride 109 H (98-107) mmol/L Carbon Dioxide 20 L (22-32) mmol/L BUN 11 (7-17) mg/dL Creatinine 0.65 (0.52-1.04) mg/dL Estimated GFR > 60 (>60) mL/min BUN/Creatinine Ratio 16.9 (6-22) Glucose 105 H (70-99) mg/dL Lactate 1.0 (0.7-2.1) mmol/L Calcium 8.7 (8.4-10.2) mg/dL Total Bilirubin 0.9 (0.2-1.3) mg/dL AST 24 (14-36) IU/L ALT 18 (<35) IU/L Alkaline Phosphatase 71 (38-126) U/L Total Protein 8.1 (6.3-8.2) g/dL Albumin 4.5 (3.5-5.0) g/dL Globulin 3.6 (1.7-4.1) g/dL Albumin/Globulin Ratio 1.3 (1.0-2.8) Lipase 56 (23-300) U/L Urine RBC 0-1/hpf (0-5/HPF) Urine WBC 0-1/hpf (0-5/HPF) Ur Squamous Epith Cells 1-5 /hpf (0-5/HPF) Amorphous Sediment 3+ Urine Bacteria Occasional (0-1) (None) Ur Culture Indicated? Cult not indicated Vol Urine Centrifuged 10ml (spun) Point of Care Testing Test Results Negative Urine Dip Bedside Urine Glucose Negative Bedside Urine Bilirubin - Negative Bedside Urine Ketone - Negative Urine Specific [place] 1.025 Bedside Urine Occult Blood - Negative Bedside Urine pH 6.0 Bedside Urine Protein +/- 15 Bedside Urine Urobilinogen - Negative Bedside Urine Nitrite - Negative Bedside Urine Leukocytes - Negative Esterase MDM Narrative Medical decision making narrative: 24-year-old female with past medical history IgA nephropathy, PCOS presents to the ED with 2 days of left-sided flank pain. Concern for pyelonephritis versus UTI versus nephrolithiasis versus other intra-abdominal pathology versus other. Will obtain labs, UA, urine , CT abdomen pelvis. Will give Toradol, Zofran. Will reassess. Labs within normal limits. UA without UTI. Urine is negative. CT abdomen pelvis without acute findings. Patient's symptoms improved with Toradol, IV fluids, Zofran. Patient states that she had similar pain when she had a ruptured ovarian cyst in the past. Pelvic ultrasound was ordered as requested by patient. Pelvic ultrasound without acute findings. Discussed findings with patient. Patient's symptoms could be due to side-effects of Zepbound versus musculoskeletal sprain/strain of the back. Prescribed Zofran for nausea as needed. Recommend ibuprofen, Tylenol for the back pain. Recommend follow-up with PCP as soon as possible ED return precautions discussed with patient. Patient verbalized understanding. Medical records reviewed: Yes Discharge Plan Departure Patient Disposition: Home Clinical Impression: Back pain Qualifiers: Back pain location: low back pain Chronicity: acute Back pain laterality: left Sciatica presence: without sciatica Qualified Code(s): M54.50 - Low back pain, unspecified Instructions: DI for Low Back Pain Activity Restrictions/Additional Instructions: You were evaluated in the emergency department today for flank/lower back pain. Your labs, urine, CT scan and ultrasound were normal. Your symptoms could either be a side-effect of the bound versus a musculoskeletal sprain/strain of the back. You may continue taking the nausea medication as needed. You may also take Pepcid AC twice daily. You may take Tylenol, ibuprofen for the back pain. Please follow-up with your PCP as soon as possible. Return to the ED if you have worsening symptoms. Prescriptions: New ondansetron 4 mg tablet,disintegrating 4 mg PO Q8H PRN (Reason: nausea and vomiting) Qty: 14 0RF No Action hydroxyzine HCl 25 mg tablet 25 mg PO Q6H duloxetine 30 mg capsule,delayed release(DR/EC) 30 mg PO DAILY prazosin 2 mg capsule 2 mg PO BEDTIME quetiapine 300 mg tablet 350 mg PO DAILY ibuprofen 800 mg tablet 800 mg PO Q8H Qty: 10 0RF Rx Instructions: take with food ondansetron 4 mg tablet,disintegrating 4 mg PO Q8H PRN (Reason: nausea and vomiting) Qty: 30 0RF acetaminophen 500 mg tablet 500 mg PO Q8H PRN (Reason: pain) Qty: 120 0RF aspirin 81 mg tablet 81 mg PO DAILY Qty: 30 0RF Zepbound 5 mg/0.5 mL pen injector 5 mg SUBCUT QWEEK Referrals: Filomena Fleming ARNP [Primary Care Provider, Family Practice] Stand Alone Forms: Patient Portal/API
[2025-03-28] MEDS: KETOROLAC 30 MG/ML VIAL 15 MG IV (14:12)
[2025-03-28] MEDS: ONDANSETRON 4 MG/2 ML INJ IV ×2 (14:13→16:32)
[2025-03-28 14:22] LABS: Add Manual Diff / Slide Review NO; Hematocrit 37.5 % (36-46); Hemoglobin 12.6 g/dL (12.0-16.0); Lymphocytes Absolute Auto 2400 /uL (1100-4500); Mean Corpuscular HGB Conc 33.8 % (30-36); Mean Corpuscular Hemoglobin 25.7 PG (26-34); Mean Corpuscular Volume 76.2 fL (80-100); Platelet Count 321 X10^3/uL (150-400)
[2025-03-28 14:33] LABS: Lactate (Lactic Acid) 1.0 mmol/L (0.7-2.1)
[2025-03-28 14:34] LABS: Alanine Aminotransferase 18 IU/L (<35); Albumin 4.5 g/dL (3.5-5.0); Albumin Globulin Ratio 1.3 (1.0-2.8); Alkaline Phosphatase 71 U/L (38-126); Blood Urea Nitrogen 11 mg/dL (7-17); Calcium 8.7 mg/dL (8.4-10.2); Carbon Dioxide 20 mmol/L (22-32); Chloride 109 mmol/L (98-107); Estimated Glomerular Filt Rate > 60 mL/min (>60); Globulin 3.6 g/dL (1.7-4.1); Glucose 105 mg/dL (70-99); HEMOLYSIS < 15 (0-50); Lipase 56 U/L (23-300); Potassium 4.2 mmol/L (3.4-5.1); Sodium 141 mmol/L (137-145); Total Protein 8.1 g/dL (6.3-8.2)
[2025-03-28] MEDS: FAMOTIDINE 20 MG/2 ML VIAL 40 MG IV (16:32)
--- NOTE | 2025-03-28 17:16 | DI.US.S_ITS ---
PROCEDURE: US PELVIC COMPLETE INDICATIONS: Left lower back pain TECHNIQUE: Real-time scanning was performed of the pelvic organs, with image documentation. Additional endovaginal scanning was necessary due to incomplete visualization of the adnexal and endometrial structures by transabdominal scanning. Doppler and color flow imaging was also performed to evaluate arterial and venous blood flow to the bilateral ovaries. COMPARISON: [facility], US, US PELVIC COMPLETE, 10/03/2024, 14:22. FINDINGS: Uterus: Uterus is anteverted and normal in size at 8.0 x 2.8 x 4.1 cm. The myometrium is homogeneous. The endometrium measures 3.6 mm combined thickness. Ovaries: The right ovary measures 1.4 x 2.8 x 1.7 cm, with a calculated ovarian volume of 3.5 cc. The left ovary measures 2.5 x 1.5 x 1.3 cm, with a calculated ovarian volume of 2.6 cc. The ovaries have a normal sonographic appearance. Less than 12 follicles can be seen in each ovary. No adnexal masses are seen. Doppler and color flow imaging demonstrates normal arterial and venous blood flow to the bilateral ovaries. Other: No pathologic free abdominal or pelvic fluid. IMPRESSION: Normal pelvic ultrasound. No sonographic evidence of ovarian torsion or infection. Approved by: Brianda Mansfield M.D.,Ph.D. on 03/28/2025 at 18:38
[2025-03-28 17:22] VITALS: BP 128/79; PULSE 79; RESP 16; O2SAT 99
--- NOTE | 2025-03-28 17:22 | PC.NURSE ---
Patient expressed dizziness with ambulation back to room. Patient intial heart rate 110, dropped down into 80's within 30 sec of rest.
--- NOTE | 2025-03-28 17:23 | PC.NURSE ---
Patient continued to be dizzy with ambulation back to RP 3, checked vitals 126/69 heart rate 99, immediatly drops to 83. Took BP standing 128/64 heart rate 99 and decreases to 80's within seconds. Provider aware.
[2025-03-28] MEDS: SODIUM CHLORIDE 0.9% 1,000 ML 1000 ML IV (17:30)
[2025-03-28 17:53] LABS: Culture Indicated Urine Cult Not Indicated
[2025-03-28 18:58] VITALS: BP 123/59; PULSE 82; RESP 17; O2SAT 98
== END 2025-03-28 18:58 | disposition home or self-care (01) ==
PROVIDERS: Emergency Provider Student in an Organized Health Care Education/Training Program; PCP Registered Nurse
DX: R10.A2 Flank pain, left side (principal); M54.50 Low back pain, unspecified; Z87.42 Personal history of other diseases of the female genital tract
CPT/HCPCS: 36415; 74177; 76830; 76856; 80053; 81003; 81015; 81025; 83605; 83690; 85025; 93975; 96374; 96375; 96376; 99284; J1885; J2405; J7030; Q9967